=== PATIENT | female | born 1995 | race Caucasian/White ===

== ENCOUNTER 2016-06-05 16:20 | Emergency (ER) | payer OTHER ==
[~2016-06-05] VITALS: Ht 172.7 cm; Wt 111.0 kg
[~2016-06-05 16:20] MED LIST: AMOXICILLIN500 M1 PO; ATARAX,VISTARIL25 MG PO; BACTRIM,SEPT1 TABLET PO; BENTYL10 MG PO; CIPRO500 MG PO; ENDOCET 5-3251 EACH PO; EXPECTA PRENAT1 EACH PO; FIORICET 50-301 EACH PO; FLONASE16 G1 BOTH NARES; IBUPROFEN800 MG PO; IRON325 MG PO; MACROBID100 MG PO; MAKENA250 MG/1 M IM/SC; MOTRIN600 MG PO; MUCINEX D ER T1 EACH PO; PERCOCET 5/31 TABLET PO; PRENATAL TABLE1 EAC3 PO; PRENATAL VITAM1 EAC2 PO; PYRIDIUM100 MG PO; REGLAN10 MG PO; TESSALON PERLE100 MG PO; ULTRAM50 MG PO; ZANTAC150 MG PO; ZITHROMAX250 MG PO; ZOFRAN ODT4 MG PO; ZOFRAN4 MG PO; ZOLOFT25 MG PO
[2016-06-05] MEDS ORDERED: TESSALON PERLE100 MG PO (18:56)
[2016-06-05] MEDS ORDERED: ZITHROMAX Z-PA250 MG PO (18:56)
[2016-06-05 19:02] VITALS: BP 140/81
== END 2016-06-05 19:03 | disposition home or self-care (01) ==
LOC: EME 16:20
DX: J18.9 Pneumonia, unspecified organism (principal)
CPT/HCPCS: 71020; 99281; 99283

== ENCOUNTER 2016-06-07 02:33 | Emergency (ER) | payer OTHER ==
[~2016-06-07] VITALS: Ht 172.7 cm; Wt 102.1 kg
[~2016-06-07 02:33] MED LIST changes: +ZITHROMAX Z-PA250 MG PO
[2016-06-07 03:09] LABS: HEMATOCRIT 37.9 % (36.0-46.0); MCH 22.7 PG (29.0-34.0); MCHC 32.2 G/DL (30.0-36.0); MCV 70.6 FL (83-99); PLATELET COUNT 308 K/uL (156-360); RBC DIS.WIDTH-CV 16.7 % (11.8-14.6); RED BLOOD COUNT 5.37 M/uL (3.80-5.20); WHITE BLOOD COUNT 6.8 K/uL (4.1-10.2)
[2016-06-07 03:13] LABS: EOSINOPHIL (%) 6.3 % (0-5); EOSINOPHIL COUNT 0.4 K/uL (0-0.3); IMMATURE GRANULOCYTE (%) 0.1 % (0.0-0.7); IMMATURE GRANULOCYTE COUNT 0.1 K/uL; LYMPHOCYTE COUNT 1.8 K/uL (1.0-2.8); MONOCYTE (%) 11.8 % (3-12); MONOCYTE COUNT 0.8 K/uL (0-0.8); NEUTROPHIL (%) 54.9 % (45-76); NEUTROPHIL COUNT 3.7 K/uL (1.8-6.4)
[2016-06-07 03:21] LABS: CHLORIDE 106 mEq/L (99-109); POTASSIUM 3.4 mEq/L (3.7-5.4); SODIUM 139 mEq/L (136-147)
[2016-06-07 03:24] LABS: GLUCOSE 101 mg/dL (70-99)
[2016-06-07 03:25] LABS: ANION GAP 13 MEQ/L (2-14)
[2016-06-07 03:26] LABS: TOTAL BILIRUBIN 0.3 mg/dL (0.0-1.0)
[2016-06-07 03:27] LABS: ALKALINE PHOSPHATASE 103 IU/L (3-129); GFR ESTIMATE (CALCULATED) > 59 mL/min/
[2016-06-07 03:28] LABS: UREA NITROGEN (BUN) 7 mg/dL (9-23)
[2016-06-07 03:36] LABS: QUANTITATIVE HCG < 4.0 MIU/ML
[2016-06-07] MEDS ORDERED: LEVAQUIN750 MG PO (06:03)
[2016-06-07] MEDS ORDERED: PROVENTIL HFA6.7 GM IH (06:05)
[2016-06-07 06:27] VITALS: BP 111/77
== END 2016-06-07 06:27 | disposition home or self-care (01) ==
LOC: EME 02:33 → EDOF 05:18 → EME 05:18
PROVIDERS: Emergency Medicine
DX: J18.9 Pneumonia, unspecified organism (principal)
CPT/HCPCS: 71020; 80053; 83605; 84702; 85025; 85379; 87040; 94640; 99281; 99285; J0696; J1885; J7030; J7050

== ENCOUNTER 2016-09-24 18:02 | Emergency (ER) | payer OTHER ==
[~2016-09-24] VITALS: Ht 172.7 cm; Wt 111.1 kg
[~2016-09-24 18:02] MED LIST changes: +LEVAQUIN750 MG PO; +PROVENTIL HFA6.7 GM IH
[2016-09-24 19:03] LABS: ADD MIUA? YES; BILIRUBIN NEGATIVE; BLOOD SMALL; COLOR YELLOW ((YELLOW)); GLUCOSE (STRIP) NEGATIVE; KETONES NEGATIVE; LEUKOCYTES MODERATE; NITRITE NEGATIVE; PROTEIN (STRIP) 30; SPECIFIC GRAVITY 1.021 (1.000-1.030); UROBILINOGEN 0.2 MG/DL (0.2-1.0)
[2016-09-24 19:10] LABS: BACTERIA RARE /HPF; EPITHELIAL CELLS RARE /HPF; HYALINE CASTS 0-5 /LPF; MUCUS 2+ /LPF; RED BLOOD CELLS 0-5 /HPF (0-5); WHITE BLOOD CELLS 20-30 /HPF (0-5)
[2016-09-24 19:12] LABS: EOSINOPHIL (%) 3.5 % (0-5); EOSINOPHIL COUNT 0.3 K/uL (0-0.3); HEMATOCRIT 40.9 % (36.0-46.0); IMMATURE GRANULOCYTE (%) 0.4 % (0.0-0.7); LYMPHOCYTE COUNT 1.8 K/uL (1.0-2.8); MCH 21.9 PG (29.0-34.0); MCHC 29.8 G/DL (30.0-36.0); MCV 73.6 FL (83-99); MONOCYTE (%) 8.2 % (3-12); MONOCYTE COUNT 0.6 K/uL (0-0.8); NEUTROPHIL (%) 64.8 % (45-76); PLATELET COUNT 362 K/uL (156-360); RBC DIS.WIDTH-SD 44.5 % (39-53); RED BLOOD COUNT 5.56 M/uL (3.80-5.20); WHITE BLOOD COUNT 7.7 K/uL (4.1-10.2)
[2016-09-24 19:17] LABS: CHLORIDE 106 mEq/L (99-109); POTASSIUM 3.5 mEq/L (3.7-5.4); SODIUM 138 mEq/L (136-147)
[2016-09-24 19:20] LABS: GLUCOSE 83 mg/dL (70-99)
[2016-09-24 19:21] LABS: ANION GAP 9 MEQ/L (2-14); TOTAL BILIRUBIN 0.3 mg/dL (0.0-1.0)
[2016-09-24 19:23] LABS: ALKALINE PHOSPHATASE 96 IU/L (3-129); GFR ESTIMATE (CALCULATED) > 59 mL/min/
[2016-09-24 19:24] LABS: UREA NITROGEN (BUN) 10 mg/dL (9-23)
[2016-09-24 19:32] LABS: QUANTITATIVE HCG < 4.0 MIU/ML
[2016-09-24] MEDS ORDERED: CIPRO500 MG PO (21:26)
[2016-09-24 21:34] VITALS: BP 136/71
== END 2016-09-24 21:35 | disposition home or self-care (01) ==
LOC: EME 18:02 → RME 18:50
PROVIDERS: Physician Assistant
DX: N12 Tubulo-interstitial nephritis, not specified as acute or chronic (principal); R10.11 Right upper quadrant pain; F32.9 Major depressive disorder, single episode, unspecified
CPT/HCPCS: 80053; 81003; 84702; 85025; 87086; 99281; 99283

== ENCOUNTER 2016-10-28 10:41 | Emergency (ER) | payer OTHER ==
[~2016-10-28] VITALS: Ht 172.7 cm; Wt 106.8 kg
[2016-10-28 13:07] VITALS: BP 135/86
[2016-10-28] MEDS ORDERED: PERCOCET 5/31 TABLET PO (13:15)
== END 2016-10-28 13:32 | disposition home or self-care (01) ==
LOC: EME 10:41
PROC: 2W3QX1Z Immobilization of Right Lower Leg using Splint (ICD-10-PCS; principal; 2016-10-28)
DX: S92.351A Displaced fracture of fifth metatarsal bone, right foot, initial encounter for closed fracture (principal); W19.XXXA Unspecified fall, initial encounter; F10.10 Alcohol abuse, uncomplicated
CPT/HCPCS: 73610; 73630; 99281; 99284

== ENCOUNTER 2016-12-31 00:01 | Emergency (ER) | payer OTHER ==
[~2016-12-31] VITALS: Ht 172.7 cm; Wt 108.9 kg
[2016-12-31 00:54] LABS: HEMATOCRIT 38.5 % (36.0-46.0); MCH 23.3 PG (29.0-34.0); MCHC 31.2 G/DL (30.0-36.0); MCV 74.8 FL (83-99); MEAN PLAT.VOLUME 10.2 uM^3 (9.5-12.4); PLATELET COUNT 359 K/uL (156-360); RBC DIS.WIDTH-CV 16.9 % (11.8-14.6); RBC DIS.WIDTH-SD 45.4 % (39-53); RED BLOOD COUNT 5.15 M/uL (3.80-5.20); WHITE BLOOD COUNT 9.4 K/uL (4.1-10.2)
[2016-12-31 00:55] LABS: CHLORIDE 107 mEq/L (99-109); POTASSIUM 3.6 mEq/L (3.7-5.4); SODIUM 140 mEq/L (136-147)
[2016-12-31 00:57] LABS: GLUCOSE 96 mg/dL (70-99)
[2016-12-31 01:01] LABS: ANION GAP 12 MEQ/L (2-14); GFR ESTIMATE (CALCULATED) > 59 mL/min/; UREA NITROGEN (BUN) 10 mg/dL (9-23)
[2016-12-31 01:06] LABS: TROP-I INTERPRETATION NEGATIVE; TROPONIN-I < 0.01 ng/mL (0.0-0.30)
[2016-12-31 01:14] LABS: TOTAL BILIRUBIN 0.2 mg/dL (0.0-1.0)
[2016-12-31 01:15] LABS: ALKALINE PHOSPHATASE 104 IU/L (3-129)
[2016-12-31 01:18] LABS: DIRECT BILIRUBIN 0.1 mg/dL (0.0-0.3)
[2016-12-31 01:19] LABS: LIPASE 19 U/L (1.0-51.0)
[2016-12-31 01:55] LABS: ADD MIUA? YES; BILIRUBIN NEGATIVE; BLOOD SMALL; COLOR YELLOW ((YELLOW)); GLUCOSE (STRIP) NEGATIVE; KETONES NEGATIVE; LEUKOCYTES LARGE; NITRITE NEGATIVE; PROTEIN (STRIP) 100; SPECIFIC GRAVITY 1.018 (1.000-1.030); UROBILINOGEN 0.2 MG/DL (0.2-1.0)
[2016-12-31 02:17] LABS: EPITHELIAL CELLS 2+ /HPF; MUCUS NONE SEEN /LPF; RED BLOOD CELLS 0-5 /HPF (0-5)
[2016-12-31 02:18] LABS: BACTERIA 1+ /HPF; CASTS NONE SEEN /LPF; UCUL ADDED? YES
[2016-12-31 02:19] LABS: AMORPHOUS URATES CRYSTALS 1+; CRYSTALS PRESENT
[2016-12-31] MEDS ORDERED: KEFLEX500 MG PO (02:28)
[2016-12-31 02:49] VITALS: BP 145/75
== END 2016-12-31 02:50 | disposition home or self-care (01) ==
LOC: EME 00:01
PROVIDERS: Emergency Medicine
DX: R07.89 Other chest pain (principal); N39.0 Urinary tract infection, site not specified
CPT/HCPCS: 71020; 80048; 80076; 81003; 83690; 84484; 85027; 85379; 87086; 93005; 99281; 99285; J1200; J2765; J7030

== ENCOUNTER 2017-02-04 19:41 | Emergency (ER) | payer OTHER ==
[~2017-02-04] VITALS: Ht 172.7 cm; Wt 110.0 kg
[~2017-02-04 19:41] MED LIST changes: +KEFLEX500 MG PO
[2017-02-04 20:09] LABS: ADD MIUA? YES; BILIRUBIN NEGATIVE; BLOOD LARGE; COLOR YELLOW ((YELLOW)); GLUCOSE (STRIP) NEGATIVE; KETONES NEGATIVE; LEUKOCYTES LARGE; NITRITE NEGATIVE; PROTEIN (STRIP) NEGATIVE; SPECIFIC GRAVITY 1.024 (1.000-1.030); UROBILINOGEN 0.2 MG/DL (0.2-1.0)
[2017-02-04 20:28] LABS: BACTERIA 2+ /HPF; CALCIUM OXALATE CRYSTALS RARE /HPF; CASTS NONE SEEN /LPF; CRYSTALS PRESENT; EPITHELIAL CELLS 3+ /HPF; MUCUS RARE /LPF; UCUL ADDED? YES
[2017-02-04 20:58] LABS: HEMATOCRIT 41.8 % (36.0-46.0); MCH 23.2 PG (29.0-34.0); MCHC 30.6 G/DL (30.0-36.0); MCV 75.7 FL (83-99); PLATELET COUNT 349 K/uL (156-360); RBC DIS.WIDTH-CV 15.9 % (11.8-14.6); RBC DIS.WIDTH-SD 43.2 % (39-53); RED BLOOD COUNT 5.52 M/uL (3.80-5.20); WHITE BLOOD COUNT 7.8 K/uL (4.1-10.2)
[2017-02-04 21:02] LABS: CHLORIDE 106 mEq/L (99-109); POTASSIUM 3.8 mEq/L (3.7-5.4); SODIUM 141 mEq/L (136-147)
[2017-02-04 21:05] LABS: GLUCOSE 93 mg/dL (70-99)
[2017-02-04 21:06] LABS: ANION GAP 11 MEQ/L (2-14)
[2017-02-04 21:07] LABS: TOTAL BILIRUBIN 0.2 mg/dL (0.0-1.0)
[2017-02-04 21:08] LABS: ALKALINE PHOSPHATASE 107 IU/L (3-129); GFR ESTIMATE (CALCULATED) > 59 mL/min/
[2017-02-04 21:09] LABS: UREA NITROGEN (BUN) 12 mg/dL (9-23)
[2017-02-04 21:21] LABS: QUANTITATIVE HCG < 4.0 MIU/ML
[2017-02-04] MEDS ORDERED: BACTRIM,SEPT1 TABLET PO (21:59)
[2017-02-04 23:00] VITALS: BP 134/81
== END 2017-02-04 23:01 | disposition home or self-care (01) ==
LOC: EME 19:41 → RME 19:41
DX: N39.0 Urinary tract infection, site not specified (principal); R10.2 Pelvic and perineal pain; R10.31 Right lower quadrant pain; Z97.5 Presence of (intrauterine) contraceptive device
CPT/HCPCS: 80053; 81003; 84702; 85027; 87086; 99281; 99284

== ENCOUNTER 2017-03-09 19:59 | Emergency (ER) | payer OTHER ==
[~2017-03-09] VITALS: Ht 172.7 cm; Wt 110.5 kg
[2017-03-09] MEDS ORDERED: ROBITUSSIN AC,T10 ML PO (20:42)
[2017-03-09] MEDS ORDERED: ALLEGRA-D 121 TABLET PO (20:42)
[2017-03-09 20:57] VITALS: BP 125/90
== END 2017-03-09 20:57 | disposition home or self-care (01) ==
LOC: EME 19:59
DX: J32.9 Chronic sinusitis, unspecified (principal); J06.9 Acute upper respiratory infection, unspecified
CPT/HCPCS: 99281; 99282

== ENCOUNTER 2017-05-05 17:43 | Emergency (ER) | payer OTHER ==
[~2017-05-05] VITALS: Ht 172.7 cm; Wt 108.3 kg
[~2017-05-05 17:43] MED LIST changes: +ALLEGRA-D 121 TABLET PO; +ROBITUSSIN AC,T10 ML PO
[2017-05-05 18:14] LABS: HEMATOCRIT 42.3 % (36.0-46.0); MCH 24.5 PG (29.0-34.0); MCHC 31.4 G/DL (30.0-36.0); MCV 77.9 FL (83-99); MEAN PLAT.VOLUME 10.4 uM^3 (9.5-12.4); PLATELET COUNT 316 K/uL (156-360); RBC DIS.WIDTH-CV 15.5 % (11.8-14.6); RBC DIS.WIDTH-SD 43.5 % (39-53); RED BLOOD COUNT 5.43 M/uL (3.80-5.20); WHITE BLOOD COUNT 12.3 K/uL (4.1-10.2)
[2017-05-05 18:21] LABS: CHLORIDE 106 mEq/L (99-109); SODIUM 137 mEq/L (136-147)
[2017-05-05 18:23] LABS: GLUCOSE 100 mg/dL (70-99)
[2017-05-05 18:24] LABS: ANION GAP 9 MEQ/L (2-14)
[2017-05-05 18:25] LABS: TOTAL BILIRUBIN 0.6 mg/dL (0.0-1.0)
[2017-05-05 18:27] LABS: ALKALINE PHOSPHATASE 104 IU/L (3-129); GFR ESTIMATE (CALCULATED) > 59 mL/min/
[2017-05-05 18:28] LABS: UREA NITROGEN (BUN) 9 mg/dL (9-23)
[2017-05-05 18:35] LABS: QUANTITATIVE HCG < 4.0 MIU/ML
[2017-05-05 18:41] LABS: ADD MIUA? YES; BILIRUBIN NEGATIVE; BLOOD NEGATIVE; COLOR YELLOW ((YELLOW)); GLUCOSE (STRIP) NEGATIVE; KETONES 5; LEUKOCYTES LARGE; NITRITE NEGATIVE; PROTEIN (STRIP) 30; SPECIFIC GRAVITY 1.015 (1.000-1.030); UROBILINOGEN 0.2 MG/DL (0.2-1.0)
[2017-05-05 18:54] LABS: RED BLOOD CELLS 0-5 /HPF (0-5)
[2017-05-05 18:55] LABS: BACTERIA 1+ /HPF; CASTS NONE SEEN /LPF; CRYSTALS NONE SEEN; EPITHELIAL CELLS 2+ /HPF; MUCUS 1+ /LPF; UCUL ADDED? YES; WHITE BLOOD CELLS 15-20 /HPF (0-5)
[2017-05-05] MEDS ORDERED: ZOFRAN ODT8 MG PO (19:31)
[2017-05-05] MEDS ORDERED: KEFLEX500 MG PO (19:31)
[2017-05-05 19:56] VITALS: BP 142/63
== END 2017-05-05 20:03 | disposition home or self-care (01) ==
LOC: EME 17:43
DX: R11.2 Nausea with vomiting, unspecified (principal); R19.7 Diarrhea, unspecified; F32.9 Major depressive disorder, single episode, unspecified; Z90.721 Acquired absence of ovaries, unilateral
CPT/HCPCS: 80053; 81003; 84702; 85027; 87086; 99281; 99284

== ENCOUNTER 2017-05-11 17:20 | Emergency (ER) | payer OTHER ==
[~2017-05-11] VITALS: Ht 172.7 cm; Wt 110.0 kg
[~2017-05-11 17:20] MED LIST changes: +ZOFRAN ODT8 MG PO
[2017-05-11 18:09] LABS: HEMATOCRIT 38.9 % (36.0-46.0); HEMOGLOBIN 12.4 G/DL (11.9-15.5); MCH 24.8 PG (29.0-34.0); MCHC 31.9 G/DL (30.0-36.0); MCV 77.6 FL (83-99); PLATELET COUNT 334 K/uL (156-360); RBC DIS.WIDTH-CV 15.2 % (11.8-14.6); RBC DIS.WIDTH-SD 41.8 % (39-53); RED BLOOD COUNT 5.01 M/uL (3.80-5.20); WHITE BLOOD COUNT 9.6 K/uL (4.1-10.2)
[2017-05-11 18:20] LABS: ALBUMIN 3.9 g/dL (3.2-4.8); CHLORIDE 104 mEq/L (99-109); POTASSIUM 3.7 mEq/L (3.7-5.4); SODIUM 139 mEq/L (136-147)
[2017-05-11 18:22] LABS: GLUCOSE 93 mg/dL (70-99); TOTAL PROTEIN 7.9 g/dL (6.4-8.3)
[2017-05-11 18:26] LABS: ALKALINE PHOSPHATASE 101 IU/L (3-129); CREATININE 0.8 mg/dL (0.6-1.3); GFR ESTIMATE (CALCULATED) > 59 mL/min/
[2017-05-11 18:27] LABS: UREA NITROGEN (BUN) 12 mg/dL (9-23)
[2017-05-11 18:28] LABS: AST (GOT) 16 IU/L (2-34)
[2017-05-11 18:29] LABS: ALT (GPT) 18 IU/L (3-49)
[2017-05-11 18:34] LABS: TOTAL BILIRUBIN 0.2 mg/dL (0.0-1.0)
[2017-05-11 18:35] LABS: QUANTITATIVE HCG < 4.0 MIU/ML
[2017-05-11 21:38] LABS: APPEARANCE CLOUDY ((CLEAR)); BILIRUBIN NEGATIVE; BLOOD LARGE; COLOR YELLOW ((YELLOW)); GLUCOSE (STRIP) NEGATIVE; KETONES NEGATIVE; LEUKOCYTES MODERATE; NITRITE NEGATIVE; PROTEIN (STRIP) 30; SPECIFIC GRAVITY 1.027 (1.000-1.030); UROBILINOGEN 0.2 MG/DL (0.2-1.0)
[2017-05-11 21:47] LABS: BACTERIA RARE /HPF; EPITHELIAL CELLS 4+ /HPF; MUCUS 2+ /LPF; UCUL ADDED? YES; WHITE BLOOD CELLS 15-20 /HPF (0-5)
[2017-05-11] MEDS ORDERED: MACROBID100 MG PO (22:10)
[2017-05-11 22:11] LABS: SOURCE SWAB
[2017-05-11 22:21] VITALS: BP 136/66
== END 2017-05-11 22:22 | disposition home or self-care (01) ==
LOC: EME 17:20
PROVIDERS: Nurse Practitioner Family
DX: N30.90 Cystitis, unspecified without hematuria (principal); R10.2 Pelvic and perineal pain; F32.9 Major depressive disorder, single episode, unspecified; Z87.440 Personal history of urinary (tract) infections
CPT/HCPCS: 76856; 80053; 81003; 84702; 85027; 87086; 87210; 87491; 87591; 99281; 99284

== ENCOUNTER 2017-06-26 17:57 | Emergency (ER) | payer OTHER ==
[~2017-06-26] VITALS: Ht 172.7 cm; Wt 116.5 kg
[2017-06-26 19:35] LABS: HEMATOCRIT 36.7 % (36.0-46.0); HEMOGLOBIN 11.6 G/DL (11.9-15.5); MCH 24.1 PG (29.0-34.0); MCHC 31.6 G/DL (30.0-36.0); MCV 76.3 FL (83-99); PLATELET COUNT 331 K/uL (156-360); RBC DIS.WIDTH-CV 14.7 % (11.8-14.6); RBC DIS.WIDTH-SD 41.1 % (39-53); RED BLOOD COUNT 4.81 M/uL (3.80-5.20); WHITE BLOOD COUNT 7.7 K/uL (4.1-10.2)
[2017-06-26 20:18] LABS: QUANTITATIVE HCG 24697.3 MIU/ML
[2017-06-26 20:26] LABS: ALBUMIN 3.7 G/DL (3.2-4.8); CHLORIDE 101 MEQ/L (99-109); POTASSIUM 3.8 MEQ/L (3.7-5.4); SODIUM 134 MEQ/L (136-147); TOTAL BILIRUBIN 0.2 MG/DL (0.0-1.0)
[2017-06-26 20:32] LABS: ALKALINE PHOSPHATASE 76 IU/L (3-129); ALT (GPT) 9 IU/L (3-49); AST (GOT) 12 IU/L (2-34); CREATININE 0.6 MG/DL (0.6-1.3); GFR ESTIMATE (CALCULATED) > 59 mL/min/; GLUCOSE 91 mg/dL (70-99); TOTAL PROTEIN 7.3 G/DL (6.4-8.3); UREA NITROGEN (BUN) 11 mg/dL (9-23)
[2017-06-26 21:03] LABS: APPEARANCE CLOUDY ((CLEAR)); BILIRUBIN NEGATIVE; BLOOD SMALL; COLOR YELLOW ((YELLOW)); GLUCOSE (STRIP) NEGATIVE; KETONES NEGATIVE; LEUKOCYTES MODERATE; NITRITE NEGATIVE; PROTEIN (STRIP) NEGATIVE; SPECIFIC GRAVITY 1.024 (1.000-1.030); UROBILINOGEN 0.2 MG/DL (0.2-1.0)
[2017-06-26 21:16] LABS: EPITHELIAL CELLS 4+ /HPF; MUCUS 2+ /LPF
[2017-06-26 21:17] LABS: BACTERIA 2+ /HPF; RED BLOOD CELLS 0-5 /HPF (0-5); UCUL ADDED? YES; WHITE BLOOD CELLS 0-5 /HPF (0-5)
[2017-06-27] MEDS ORDERED: ZOFRAN ODT8 MG PO (00:08)
[2017-06-27] MEDS ORDERED: BENTYL20 MG PO (00:09)
[2017-06-27] MEDS ORDERED: PRENATAL VITAM1 EAC7 PO (00:12)
[2017-06-27 00:32] VITALS: BP 138/87
== END 2017-06-27 00:33 | disposition home or self-care (01) ==
LOC: EME 17:57 → RME 17:57
DX: O26.891 Other specified pregnancy related conditions, first trimester (principal); R10.817 Generalized abdominal tenderness; R11.0 Nausea; Z3A.01 Less than 8 weeks gestation of pregnancy; O99.341 Other mental disorders complicating pregnancy, first trimester; F32.9 Major depressive disorder, single episode, unspecified; Z87.440 Personal history of urinary (tract) infections
CPT/HCPCS: 76801; 80053; 81003; 84702; 85027; 87086; 99281; 99284

== ENCOUNTER 2017-07-14 16:39 | Emergency (ER) | payer OTHER ==
[~2017-07-14] VITALS: Ht 172.7 cm; Wt 116.7 kg
[~2017-07-14 16:39] MED LIST changes: +BENTYL20 MG PO; +PRENATAL VITAM1 EAC7 PO
[2017-07-14 18:33] LABS: APPEARANCE CLOUDY ((CLEAR)); BILIRUBIN NEGATIVE; BLOOD NEGATIVE; COLOR AMBER ((YELLOW)); GLUCOSE (STRIP) NEGATIVE; KETONES 5; LEUKOCYTES LARGE; NITRITE NEGATIVE; PROTEIN (STRIP) 30; SPECIFIC GRAVITY 1.029 (1.000-1.030); UROBILINOGEN 0.2 MG/DL (0.2-1.0)
[2017-07-14 18:54] LABS: EPITHELIAL CELLS 3+ /HPF; MUCUS 2+ /LPF
[2017-07-14 18:55] LABS: BACTERIA 3+ /HPF; RED BLOOD CELLS NONE SEEN /HPF (0-5); UCUL ADDED? YES; WHITE BLOOD CELLS 15-20 /HPF (0-5)
[2017-07-14 18:56] LABS: CALCIUM OXALATE CRYSTALS 1+ /HPF
[2017-07-14] MEDS ORDERED: KEFLEX500 MG PO (19:10)
[2017-07-14 19:25] VITALS: BP 159/88
== END 2017-07-14 19:26 | disposition home or self-care (01) ==
LOC: EME 16:39
PROVIDERS: Physician Assistant Medical
DX: O23.41 Unspecified infection of urinary tract in pregnancy, first trimester (principal); O26.891 Other specified pregnancy related conditions, first trimester; R51 Headache; Z3A.08 8 weeks gestation of pregnancy; Z87.440 Personal history of urinary (tract) infections; O99.341 Other mental disorders complicating pregnancy, first trimester; F32.9 Major depressive disorder, single episode, unspecified
CPT/HCPCS: 81003; 87086; 99281; 99284; J1200; J2765; J7030

== ENCOUNTER 2017-11-19 21:24 | Outpatient (CLI) | payer OTHER ==
[2017-11-19 22:35] VITALS: BP 123/70
[2017-11-19] MEDS ORDERED: PROMETHAZINE HC25 M1 PO (23:55)
[2017-11-19] MEDS ORDERED: FIORICET 50-301 EAC1 PO (23:56)
[2017-11-19] MEDS ORDERED: TYLENOL325 M2 PO (23:56)
[2017-11-20 01:32] LABS: CANDIDA DNA PROBE NEGATIVE; GARDNERELLA DNA PROBE POSITIVE; TRICHOMONAS DNA PROBE NEGATIVE
== END 2017-11-20 00:20 | disposition home or self-care (01) ==
LOC: LDRP-OP → 2WEST 21:27 → LDRP-OP 03-23 09:36
PROVIDERS: Advanced Practice Midwife
DX: O26.892 Other specified pregnancy related conditions, second trimester (principal); Z3A.27 27 weeks gestation of pregnancy
CPT/HCPCS: 59025; 82731; 87480; 87510; 87660; G0378